=== PATIENT | female | born 1980 | race Two or more races ===

== ENCOUNTER → 2020-10-22 08:00 | Outpatient (CLI) | payer OTHER ==
[~2020-10-22 08:00] MED LIST: KETO10TA2 PO; MIRALAX17 GM PO; PEPCID AC20 MG PO; TYLENOL ARTHRI650 MG PO; ULTRAM50 MG PO
== END | disposition home or self-care (01) ==
LOC: LAB 08:00 → RAD 08:00 → ADM 08:15 → CIR.AMB 10-25 08:15 → EDSTATUS 10-25 08:15 → CIR.AMB 10-25 18:15 → LAB 11-21 12:13
PROVIDERS: ATTEND Surgery
DX: K42.0 Umbilical hernia with obstruction, without gangrene (principal)

== ENCOUNTER 2020-12-27 07:05 | Day surgery (SDC) | payer OTHER ==
[2020-12-27] MEDS ORDERED: MIRALAX17 GM PO (09:17)
[2020-12-27] MEDS ORDERED: TYLENOL ARTHRI650 MG PO (09:17)
[2020-12-27] MEDS ORDERED: KETO10TA2 PO (09:17)
[2020-12-27] MEDS ORDERED: PEPCID AC20 MG PO (09:17)
[2020-12-27] MEDS ORDERED: ULTRAM50 MG PO (09:17)
== END 2020-12-27 11:35 | disposition home or self-care (01) ==
LOC: CIR.AMB 07:05
PROVIDERS: ATTEND Surgery
DX: K42.0 Umbilical hernia with obstruction, without gangrene (principal); K43.6 Other and unspecified ventral hernia with obstruction, without gangrene; Z20.822 Contact with and (suspected) exposure to COVID-19

== ENCOUNTER 2021-01-31 14:34 | Emergency (ER) | payer OTHER ==
[~2021-01-31] VITALS: Ht 162.6 cm; Wt 70.8 kg
== END 2021-01-31 19:40 | disposition home or self-care (01) ==
LOC: ER 14:34
DX: R10.33 Periumbilical pain (principal)

== ENCOUNTER 2021-10-03 06:40 | Outpatient (CLI) | payer OTHER | END 2021-10-03 06:51 | disposition home or self-care (01) | LOC: LAB 06:40 | PROVIDERS: ATTEND Surgery | DX: R10.9 Unspecified abdominal pain (principal); K80.20 Calculus of gallbladder without cholecystitis without obstruction; I10 Essential (primary) hypertension ==

== ENCOUNTER → 2021-10-03 | Outpatient (CLI) | payer OTHER | END | disposition home or self-care (01) | LOC: SONOGRAMA 07:23 | PROVIDERS: ATTEND Surgery | DX: K80.20 Calculus of gallbladder without cholecystitis without obstruction (principal) ==

== ENCOUNTER 2021-11-07 07:17 | Outpatient (CLI) | payer OTHER | END 2021-11-07 07:18 | disposition home or self-care (01) | LOC: NUCLEAR 07:17 | DX: K82.9 Disease of gallbladder, unspecified (principal) | CPT/HCPCS: 78227; A9537; J2805 ==